=== PATIENT | male | born 1990 ===

== ENCOUNTER → 2020-12-11 | Outpatient (REF) ==
--- NOTE | 2020-12-11 09:44 | REPPI ---
INDICATION: DDD DISABILITY DIAGNOSIS DETERMINATION COMPARISON: None. TECHNIQUE: AP, lateral, bilateral oblique views right foot. FINDINGS: Evidence for prior open reduction and fixation involving the calcaneus. Associated moderate posttraumatic degenerative changes to the midfoot include mild osteopenia and somewhat heterogeneous appearance to the osseous structures to the level of the tarsometatarsal joints. The phalanges appear intact.. 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 <Electronically signed by Wing Martinez > 12/11/20 0937
== END ==
LOC: M PLAIMG 08:47
PROVIDERS: ATTEND Internal Medicine
DX: Z00.00 Encounter for general adult medical examination without abnormal findings (principal)